=== PATIENT | female | born 1995 | race Caucasian/White ===

== ENCOUNTER 2024-08-04 18:31 | Emergency (ER) | payer SELFPAY ==
[2024-08-04 18:35] VITALS: BP 144/100
[2024-08-04 18:58] LABS: % Eosinophils 3.9 % (0-6); % Immature Granulocytes 0.3 % (0-0.5); % Lymphocytes 23.7 % (20.5-51.1); % Monocytes 4.6 % (1.7-9.3); % Neutrophils 66.5 % (42.2-75.2); Absolute Basophils 0.1 10^3/uL (0-0.2); Absolute Eosinophils 0.4 10^3/uL (0-0.7); Absolute Lymphocytes 2.4 10^3/uL (1.2-3.4); Absolute Monocytes 0.5 10^3/uL (0.1-0.6); Absolute Neutrophils 6.7 10^3/uL (1.4-6.5); Hematocrit 39.5 % (37.0-47.0); Hemoglobin 13.5 g/dL (12.0-16.0); Mean Corp Hgb Conc. 34.2 g/dL (33.0-37.0); Mean Corpuscular Hgb 29.9 pg (27.0-31.0); Mean Corpuscular Volume 87.6 fL (81.0-99.0); Nucleated Red Blood Cells % 0 %; Platelet Count 410 10^3/uL (130-400); Red Blood Cell Count 4.51 10^6/uL (4.20-5.40); Red Cell Dist. Width 12.2 % (11.5-14.5)
[2024-08-04 19:08] LABS: INR 1.03; PT 13.8 Sec (11.4-14.6)
[2024-08-04 19:19] LABS: ALT (SGPT) 22 U/L (0-35); AST (SGOT) 20 U/L (14-36); Albumin 4.3 g/dl (3.5-5.0); Alkaline Phosphatase 83 U/L (38-126); Blood Urea Nitrogen 7 mg/dl (7-17); Calcium 9.6 mg/dl (8.4-10.2); Carbon Dioxide 29 mmol/L (22-30); Chloride 107 mmol/L (98-107); Glucose 117 mg/dl (70-99); Lipase 91 U/L (23-300); Sodium 139 mmol/L (135-145); Total Bilirubin 0.5 mg/dl (0.2-1.3); Total Protein 7.1 g/dl (6.3-8.2); eGFR > 60.00
[2024-08-04 19:20] LABS: Troponin I < 0.012 ng/ml
--- NOTE | 2024-08-04 19:32 | ED.GENMED ---
History of Present Illness
General
Chief Complaint: Abdominal Pain
Source: patient
Exam Limitations: none
Time Seen by Provider: 08/04/24 19:23
Nursing documentation reviewed up to this point in time: agreed with
History of Present Illness
History of Present Illness:
28-year-old female with no reported chronic medical issues presents to the ER for evaluation of abdominal pain. Patient reports onset of symptoms 2 days ago and they have been constant since that time although intensity tends to wax and wane. She
reports a dull aching occasionally burning sensation in the epigastrium that radiates towards her back. Somewhat worse when she moves around during the day, somewhat better when she rests; not clearly related to meals. She denies any other
triggering factors. She does note that she did research online and thought she could have an ulcer and so she maintained a bland diet today which seemed to help somewhat. She has had some nausea denies any vomiting. She says she was mildly
constipated and took some Dulcolax and was able to have a bowel movement but it did not affect her symptoms. She denies any urinary symptoms. She denies any vaginal bleeding. Last menstrual period was 2 years ago�patient has an IUD. She denies
any fevers or chills. She denies any other complaints. She denies prior abdominal surgeries or similar symptoms in the past.
Review of Systems
Review of Systems
All Other Systems: ROS reviewed and negative except as documented in HPI and ROS
Constitutional: Denies fever
Respiratory: Denies trouble breathing
Cardiac: Denies chest pain
ABD/GI: Reports abdominal pain, nausea and constipated; Denies vomiting or diarrhea
: Denies dysuria, frequency, flank pain or bleeding
Musculoskeletal: Denies neck pain
Neurological: Denies dizzy or headache
Phy Exam
Physical Exam
Physical Exam:
General: Awake, alert, oriented x3; no acute distress
Head: Normocephalic, atraumatic
Eyes: Conjunctiva normal, sclera anicteric
Throat: Airway intact, handling secretions
Neck: Trachea midline, supple without meningismus
Lungs: Clear to auscultation bilaterally, no wheezing, rales, rhonchi
Heart: Regular rate and rhythm, no murmurs, gallops, or rubs
Abd: Soft, non distended, mildly tender in the epigastrium
Back: No CVA tenderness
Neuro: No gross deficits
Skin: no rash in area of concern
Extremities: Warm and well-perfused
Scores
Heart Failure Risk
Heart Failure Risk Score: Not Applicable
Heart Score for Chest Pain Patients
STEMI patient?: Not applicable
Withdrawal Assessment of Alcohol
Withdrawal Assessment Completed?: Not applicable
Course
Orders/Labs/Results
Orders:
Orders
08/04/24 18:37
EKG [Electrocardiogram (*1)] Urgent
Reason for Study: Abdominal Pain
EKG- Treatment ONCE
08/04/24 18:49
Complete Blood Count/With Diff Urgent
Comprehensive Metabolic Panel Urgent
HCG, Serum Qualitative Screen Urgent
Comment: ADD ON
Lipase Urgent
Prothrombin Time Urgent
Troponin I Urgent
08/04/24 19:23
Add On- LAB Urgent
Tests Added?: hcg qualitative
08/04/24 19:32
US Abdomen Complete/Upper Urgent
Comment:
Reason For Exam: upper abd pain
08/04/24 20:44
Urinalysis Reflex To Culture Urgent
Date Specimen was Collected: 08/04/24
Time Specimen was Collected: 20:42
Abnormal Lab Results
08/04/24
18:49
Plt Count 410 H 10^3/uL
(130-400)
Absolute Neuts (auto) 6.7 H 10^3/uL
(1.4-6.5)
Glucose 117 H mg/dl
(70-99)
08/04/24 18:49
08/04/24 18:49
Vital Signs
Initial and Last Documented VS:
Initial Vital Signs
Temp Pulse Resp BP Pulse Ox
37.1 C 81 17 144/100 99
08/04/24 18:35 08/04/24 18:35 08/04/24 18:35 08/04/24 18:35 08/04/24 18:35
Last Documented Vital Signs
Temp Pulse Resp BP Pulse Ox
37.1 C 77 14 105/75 99
08/04/24 18:35 08/04/24 20:21 08/04/24 20:21 08/04/24 20:21 08/04/24 20:21
MDM/Problems Addressed
Differential Diagnosis Includes:
Pancreatitis, hepatitis, cholelithiasis/cholecystitis, gastritis, PUD
MDM/Problems Addressed:
28-year-old female presents for evaluation of epigastric pain rating to the back associate with nausea for the past 2 days. Vitals and exam as above. She had lab work sent in triage including CBC and a CMP which showed no clinically significant
abnormalities�she had notably normal LFTs. She had a normal lipase. She had an EKG and troponin done despite denying any chest pain�troponin was undetectable, EKG shows normal sinus rhythm. Will check an hCG. Check upper abdominal ultrasound.
Reassess after the above.
Upper abdominal ultrasound reportedly negative for cholelithiasis or cholecystitis, normal CBD. Clinical reassessment vital signs stable. Suspect likely gastritis/PUD. Will plan to initiate treatment with PPI and Carafate. Advised continue with
bland diet. Patient comfortable this plan. She will follow-up with her primary care physician. Spoke about return precautions all questions answered.
*Radiology
Radiology exam reviewed: radiology read reviewed
*Pulse Oximetry
Patient hypoxic: no
*EKG
Interpreted by ED Provider?: Yes
Heart Rate: 75
Rate: normal
Rhythm: sinus
[place]: normal axis
Interval: normal interval
QRS Pattern: normal QRS
Ischemia: no ischemia
*Critical Care Note
Total Time (30-74mins, 75-104mins- exclusive of procedures): Not Applicable
Data Reviewed
Source: patient
ED Attending Note
-
Portions of this chart may have been created with voice recognition software.� Occasional wrong word or��sound alike� substitutions may have occurred due to the inherent limitations of voice recognition software.
Discharge Plan
Departure
Patient Disposition: Home (Routine Discharge)
Date of Disposition: 08/04/24
Time of Disposition: 21:17
Patient with high blood pressure during this ER visit?: Yes
Discharge Problem:
Epigastric abdominal pain
Instructions: Peptic ulcers, Abdominal Pain
Prescriptions:
New
pantoprazole 40 mg tablet,delayed release (DR/EC)
40 mg PO DAILY Qty: 30 0RF
sucralfate [Carafate] 100 mg/mL suspension
10 ml PO ACHS Qty: 1000 0RF
No Action
Lexapro
1 tab PO DAILY
Patient Comments:
pt does not know mg
buspirone
1 tab PO DAILY
Patient Comments:
pt does not know mg
Referrals:
Kenna Ash MD [Family Provider, [facility]] - Follow up in 1 week
Activity Restrictions/Additional Instructions:
Thank you for visiting the Emergency Department at [facility].
1. Please schedule a follow up appointment as directed. Call first thing tomorrow morning to make an appointment.
2. If indicated, please take your medications as instructed and indicated on discharge paperwork.
3. If any of your symptoms do not improve, or persist, or become more severe within 6-12 hours, please return to the emergency department for further care.
4. Please return to the emergency department if you develop a headache, neck pain/stiffness, fever greater than 100.4F, chest pain, shortness of breath, persistent nausea, vomiting, slurred speech, difficulty walking, numbness/tingling, weakness,
signs of infection or any other symptoms that are worrisome to you.
Please call [phone] if you have any questions.
Interventions
Interventions:
*Risk Screen - Suicide Last Done: 08/04/24 18:36
*General Assessment Last Done: 08/04/24 18:36
*Neglect/Abuse Screening Last Done: 08/04/24 18:36
*ED COVID-19 Vaccine History Last Done: 08/04/24 18:36
[facility] Assessment Last Done: 08/04/24 20:21
Discharge Date and Time
Print Language: CITIZEN OF [place]
[2024-08-04 20:21] VITALS: BP 105/75; BMI 38.3
[2024-08-04 20:23] LABS: HCG, Serum Qualitative Screen Negative
--- NOTE | 2024-08-04 20:25 | EDRN ---
Pt with 2 days of mid upper abdominal pain that radiates into b/l back. Pain waxes and wanes. No hx of similar. No abd surgeries. Pt notes pain is worse with movement. When pt rolled over in her sleep last night, pain woke her. Nausea, no
vomiting. Chills last night. No cp, sob, fever/cough, urinary symptoms. Pt took dulcolax last night because she thought she might be constipated. Pt with loose stools today.
[2024-08-04 20:51] LABS: Urine Albumin Negative (Neg - Trace); Urine Bilirubin Negative (Negative); Urine Character Cloudy (Clear); Urine Color Yellow; Urine Glucose Negative (Negative); Urine Ketone Negative (Negative); Urine Leukocyte Negative (Negative); Urine Nitrite Negative (Negative); Urine Occult Blood Negative (Negative); Urine Urobilinogen Negative (Neg - 1+)
[2024-08-04 21:24] VITALS: BP 109/72
== END 2024-08-04 21:31 | disposition home or self-care (01) ==
LOC: EMR 18:31
PROVIDERS: Student in an Organized Health Care Education/Training Program; EMERGENCY PHYSICIAN Emergency Medicine; FAMILY PHYSICIAN Family Medicine
DX: R10.13 Epigastric pain (principal); R11.0 Nausea; K59.00 Constipation, unspecified; R03.0 Elevated blood-pressure reading, without diagnosis of hypertension; J45.909 Unspecified asthma, uncomplicated; Z97.5 Presence of (intrauterine) contraceptive device; Z87.440 Personal history of urinary (tract) infections; Z91.018 Allergy to other foods
CPT/HCPCS: 99284; 76700; 80053; 81003; 83690; 84484; 84703; 85025; 85610; 93005